=== PATIENT | male | born 1995 | race Caucasian/White ===

== ENCOUNTER 2017-02-26 21:48 | Emergency (ER) | payer OTHER | END 2017-02-27 01:07 | disposition home or self-care (01) | LOC: ER1 21:48 | DX: T24.201A Burn of second degree of unspecified site of right lower limb, except ankle and foot, initial encounter (principal); T22.20XA Burn of second degree of shoulder and upper limb, except wrist and hand, unspecified site, initial encounter; T21.24XA Burn of second degree of lower back, initial encounter; T21.23XA Burn of second degree of upper back, initial encounter; T31.0 Burns involving less than 10% of body surface; X08.8XXA Exposure to other specified smoke, fire and flames, initial encounter; Z87.891 Personal history of nicotine dependence | CPT/HCPCS: 16020; 99283 ==

== ENCOUNTER 2021-09-06 00:55 | Emergency (ER) | payer SELFPAY ==
[~2021-09-06 00:55] MED LIST: AMOXICILLIN500 MG PO; AUGMENTIN 875-1 EACH PO; CLEOCIN HCL300 MG PO; CYCLOBENZAPRINE5 MG PO; FLONASE 0.05% N16 GM; IBU800 MG PO; MUCINEX600 MG PO; SUDAFED 60 MG T60 MG PO; ZOFRAN4 MG PO; ZYRTEC10 MG PO
[2021-09-06] MEDS ORDERED: LODINE CAP 300300 MG PO (05:20)
[2021-09-06] MEDS ORDERED: BENZONATATE100 MG PO (05:20)
[2021-09-06] MEDS ORDERED: PROVENTIL HFA6.7 GM INH (05:20)
== END 2021-09-06 05:39 | disposition home or self-care (01) ==
LOC: ER1 00:55
DX: J02.9 Acute pharyngitis, unspecified (principal); J06.9 Acute upper respiratory infection, unspecified; Z20.822 Contact with and (suspected) exposure to COVID-19
CPT/HCPCS: 71046; 87081; 87880; 99283; U0002

== ENCOUNTER 2021-11-04 16:10 | Emergency (ER) | payer OTHER ==
[~2021-11-04 16:10] MED LIST changes: +BENZONATATE100 MG PO; +LODINE CAP 300300 MG PO; +PROVENTIL HFA6.7 GM INH
== END 2021-11-04 17:07 | disposition left against medical advice (07) ==
LOC: ER1 16:10
DX: Z53.21 Procedure and treatment not carried out due to patient leaving prior to being seen by health care provider (principal)

== ENCOUNTER 2022-07-05 21:32 | Emergency (ER) | payer OTHER ==
[2022-07-05 22:28] LABS: HEMOGLOBIN 14.5 gm/dl (14.0-17.5); RED BLOOD COUNT 4.91 M/UL (4.20-5.50); WHITE BLOOD COUNT 9.4 K/UL (4.5-11.0)
[2022-07-05 23:24] LABS: BUN/CREATININE RATIO 12 (0-10)
[2022-07-06] MEDS ORDERED: BAYER CHEWABLE81 MG PO (02:45)
== END 2022-07-06 02:58 | disposition home or self-care (01) ==
LOC: ER1 21:32
PROVIDERS: Physician Assistant
DX: R07.9 Chest pain, unspecified (principal); R06.02 Shortness of breath; F17.290 Nicotine dependence, other tobacco product, uncomplicated
CPT/HCPCS: 71045; 80053; 82550; 82553; 83880; 84484; 85025; 85610; 85730; 93005; 99285